=== PATIENT | female | born 1995 | race Two or more races ===

== ENCOUNTER → 2023-12-12 15:41 | Outpatient (REF) | payer OTHER, SELFPAY | LOC: RAD 15:41 | PROVIDERS: ATTENDING PHYSICIAN Obstetrics & Gynecology; FAMILY PHYSICIAN Family Medicine | DX: Z34.90 Encounter for supervision of normal pregnancy, unspecified, unspecified trimester (principal) | CPT/HCPCS: 76801 ==

== ENCOUNTER → 2023-12-27 13:43 | Outpatient (REF) | payer OTHER, SELFPAY | LOC: RAD 13:43 | PROVIDERS: ATTENDING PHYSICIAN Obstetrics & Gynecology; FAMILY PHYSICIAN Family Medicine | DX: Z34.90 Encounter for supervision of normal pregnancy, unspecified, unspecified trimester (principal) | CPT/HCPCS: 76801; 76817 ==

== ENCOUNTER → 2023-12-31 08:03 | Day surgery (SDC) | payer OTHER, SELFPAY ==
[2023-12-31] VITALS (17 sets, daily range): BP systolic 98–118; BP diastolic 57–74; BMI 21.3
--- NOTE | 2023-12-31 01:52 | ED.GENMED ---
History of Present Illness
General
Chief Complaint: Problems
Source: patient
Exam Limitations: none
Time Seen by Provider: 12/31/23 01:39
Nursing documentation reviewed up to this point in time: agreed with
Travel History
Have you had any contact with someone who has COVID-19?: No
Do you have any symptoms of coronavirus? Fever > 100 degrees, chills, cough, shortness of breath, sore throat, loss of taste or smell, muscle aches, or headache?: No
History of Present Illness
History of Present Illness:
Patient , approximately 13 weeks , who unfortunately had an ultrasound last week which revealed demise, presents to ED secondary to worsening lower abdominal cramping sensation, associated with nausea and passage of blood clots
along with bright red blood. Denies fever or chills. Denies chest pain or shortness of breath. Patient reports nausea sensation without vomiting. Denies dizziness. Patient is scheduled for D&C with her [facility] physician later this morning.
Review of Systems
Review of Systems
Allergies reviewed?: Yes
All Other Systems: ROS reviewed and negative except as documented in HPI and ROS
Constitutional: Reports no symptoms
EENT: Reports no symptoms
Respiratory: Reports no symptoms
Cardiac: Reports no symptoms
ABD/GI: Reports no symptoms
: Reports bleeding
Musculoskeletal: Reports no symptoms
Skin: Reports no symptoms
Neurological: Reports no symptoms
Phy Exam
Physical Exam
Physical Exam:
Physical Exam
General: no apparent distress, not acutely ill. afebrile
Head: nc/at. eomi
Neck: supple. no meningeal signs.
Heart: s1/s2 regular rate and rhythm, no murmur. equal radial pulses.
Lungs: no acute respiratory distress. clear bilaterally
Abdomen: normal bowel sounds. mild diffuse lower tenderness to palpation, without distention.
Neuro: alert and oriented. no focal neurological deficits
Skin: no rash
Psychiatric: well kept. interactive and cooperative
Extremities: no edema. no calf tenderness.
Course
Orders/Labs/Results
Orders:
Orders
12/31/23 01:51
IV Insert/Care/Rem.- Treatment PRN
0.9% Sodium Chloride 500 ml [Nss] 500 ml IV BOLUS
HYDROmorphone [Dilaudid] 0.5 mg IV NOW STA
Ondansetron Injectable [Zofran] 4 mg IV NOW STA
12/31/23 02:08
Type+Screen Urgent
Complete Blood Count/With Diff Urgent
Comprehensive Metabolic Panel Urgent
PTT Urgent
Prothrombin Time Urgent
12/31/23 04:03
Rhogam [* Blood Bank Products] Urgent
Blood Bank Products: Rhogam - Mini Dose
Quantity: 1
Transfuse Today: Yes
Reason: Other
Other reason: Rh Neg
Rho (D) Immune Globulin [MICRhoGRAM ULTRA FILTERED PLUS] 50 mcg IM ONCE ONE
12/31/23 04:04
* Blood Bank Products Urgent
Blood Bank Products: Rhogam - Mini Dose
Quantity: 50 mg
Transfuse Today: Yes
Reason: Other
Other reason: Vaginal bleeding/miscarriage
12/31/23 04:30
Doxycycline Hyclate [Vibramycin] 100 mg 0.9% Sodium Chloride 250 ml [Nss] 250 ml IV ONCE
Rho (D) Immune Globulin [MICRhoGRAM ULTRA FILTERED PLUS] 50 mcg IM ONCE ONE
12/31/23 04:54
Meperidine [Demerol] 12.5 mg IV PACU-Q5MPRN PRN
Morphine Sulfate 2 mg IV PACU-Q5MPRN PRN
Morphine Sulfate 4 mg IV PACU-Q5MPRN PRN
Ondansetron Injectable [Zofran] 4 mg IV PACU-ONCEPRN PRN
Prochlorperazine [Compazine] 5 mg IV PACU-ONCEPRN PRN
12/31/23 04:55
Notify MD As Directed
Notify physician if: for SDS patients with known or suspected sleep obstructive sleep apnea, monitor in the
PACU.
Notify MD for any apneic/desaturation episodes
O2 Therapy [RESP] Urgent
Titrate/Wean O2 to maintain O2 sat greater than (%): 92
Special Instructions: -Provide supplemental oxygen to achieve O2 sat of 92% or greater.
-After 15 min, may wean O2 and discontinue if patient is able to maintain O2 sat of 92%
or greater during recovery period.
If patient is a discharge home, without oxygen therapy, notify anestheiologist if
unable to maintain O2 SAT of 92% or greater on room air for MD clearance.
12/31/23 05:00
Flush (0.9% Sodium Chloride) [Flush (Nss)] See Dose Instructions IV PER PROTOCOL
Normosol (Mult Electrolytes) [Normosol-R] 1,000 ml IV PER PROTOCOL
12/31/23 05:07
OR Pathology Routine
Clinical History: incomplete
Pre-Operative Diagnosis: incomplete
Post-Operative Diagnosis: incomplete
Operative Procedure: dilation and evacuation
Surgeon: liane
Circulating Nurse: noam
Specimen Type: products of conception
12/31/23 05:09
Fentanyl Citrate/Pf [Sublimaze] 100 mcg .ROUTE .STK-MED ONE
Midazolam HCl [Versed] 2 mg .ROUTE .STK-MED ONE
12/31/23 05:24
Dexamethasone Sod Phosphate [Decadron] 20 mg .ROUTE .STK-MED ONE
Ondansetron Injectable [Zofran] 4 mg .ROUTE .STK-MED ONE
12/31/23 05:28
Lidocaine HCl/Pf [Xylocaine-Mpf 1% Vial] 50 mg .ROUTE .STK-MED ONE
Propofol [Diprivan] 20 ml .ROUTE .STK-MED
12/31/23 05:40
Ketorolac [Toradol] 30 mg .ROUTE .STK-MED ONE
12/31/23 07:00
Acetaminophen [Tylenol] 650 mg PO SDS-Q4HPRN PRN
Normosol (Mult Electrolytes) [Normosol-R] 1,000 ml IV SDS-ONCE
Ondansetron Injectable [Zofran] 4 mg IV SDS-ONCEPRN PRN
Oxycodone [Roxicodone] 10 mg PO SDS-Q4HPRN PRN
Oxycodone [Roxicodone] 5 mg PO SDS-Q4HPRN PRN
Abnormal Lab Results
12/31/23
02:08
Absolute Neuts (auto) 6.7 H 10^3/uL
(1.4-6.5)
Carbon Dioxide 20 L mmol/L
(22-30)
Glucose 100 H mg/dl
(70-99)
12/31/23 02:08
12/31/23 02:08
Vital Signs
Initial and Last Documented VS:
Initial Vital Signs
Temp Pulse Resp BP Pulse Ox
97.8 F 82 22 98/72 98
12/31/23 01:30 12/31/23 01:30 12/31/23 01:30 12/31/23 01:30 12/31/23 01:30
Last Documented Vital Signs
Temp Pulse Resp BP Pulse Ox
98.7 F 107 25 105/63 100
12/31/23 05:50 12/31/23 06:45 12/31/23 06:45 12/31/23 06:57 12/31/23 06:56
Information
Weeks gestation: N/A
Location: N/A
MDM/Problems Addressed
MDM/Problems Addressed:
H/H noted. Discussed with (charting clerk) - will proceed to OR
*Critical Care Note
Total Time (30-74mins, 75-104mins- exclusive of procedures): Not Applicable
ED Attending Note
-
Portions of this chart may have been created with voice recognition software.� Occasional wrong word or��sound alike� substitutions may have occurred due to the inherent limitations of voice recognition software.
Discharge Plan
Departure
Patient Disposition: Home (Routine Discharge)
Date of Disposition: 12/31/23
Time of Disposition: 05:53
Patient with high blood pressure during this ER visit?: No
Condition: Fair
Discharge Problem:
demise, Vaginal bleeding
Interventions
Interventions:
*Risk Screen - Suicide Last Done: 12/31/23 01:30
*General Assessment Last Done: 12/31/23 01:41
*Neglect/Abuse Screening Last Done: 12/31/23 01:30
ED- Fall Risk Assessment Last Done: 12/31/23 01:41
*ED COVID-19 Vaccine History Last Done: 12/31/23 01:40
*Nursing Disposition Last Done: 12/31/23 05:20
ED-Female Genitourinary Assessment Last Done: 12/31/23 01:41
Discharge Date and Time
Discharge Date/Time: 12/31/23 07:10
[2023-12-31] MEDS: DILAUDID 0.5 MG IV (02:15)
[2023-12-31] MEDS: NSS 500 IV (02:15)
[2023-12-31] MEDS: ZOFRAN 4 MG IV (02:16)
[2023-12-31 02:28] LABS: % Basophils 0.5 % (0-2); % Eosinophils 1.1 % (0-6); % Immature Granulocytes 0.3 % (0-0.5); % Lymphocytes 22.6 % (20.5-51.1); % Monocytes 5.8 % (1.7-9.3); % Neutrophils 69.7 % (42.2-75.2); Absolute Basophils 0.1 10^3/uL (0-0.2); Absolute Eosinophils 0.1 10^3/uL (0-0.7); Absolute Lymphocytes 2.2 10^3/uL (1.2-3.4); Absolute Monocytes 0.6 10^3/uL (0.1-0.6); Absolute Neutrophils 6.7 10^3/uL (1.4-6.5); Hematocrit 39.5 % (37.0-47.0); Hemoglobin 14.2 g/dL (12.0-16.0); Mean Corp Hgb Conc. 35.9 g/dL (33.0-37.0); Mean Corpuscular Hgb 30.1 pg (27.0-31.0); Mean Corpuscular Volume 83.9 fL (81.0-99.0); Mean Platelet Volume 9.8 fL (7.4-10.4); Nucleated Red Blood Cells % 0 %; Platelet Count 319 10^3/uL (130-400); Red Blood Cell Count 4.71 10^6/uL (4.20-5.40); Red Cell Dist. Width 12.7 % (11.5-14.5); White Blood Cell Count 9.6 10^3/uL (4.8-10.8)
[2023-12-31 02:32] LABS: INR 1.03; PT 13.3 Sec (11.4-14.6)
[2023-12-31 02:33] LABS: APTT 26.5 Sec (23.4-35.0)
[2023-12-31 02:37] LABS: ALT (SGPT) 13 U/L (0-35); AST (SGOT) 20 U/L (14-36); Albumin 4.7 g/dl (3.5-5.0); Alkaline Phosphatase 87 U/L (38-126); Blood Urea Nitrogen 11 mg/dl (7-17); Calcium 9.7 mg/dl (8.4-10.2); Carbon Dioxide 20 mmol/L (22-30); Chloride 105 mmol/L (98-107); Estimated Creatinine Clearance > 125 ml/min; Glucose 100 mg/dl (70-99); Potassium 3.6 mmol/L (3.5-5.1); Sodium 136 mmol/L (135-145); Total Bilirubin 1.2 mg/dl (0.2-1.3); Total Protein 7.4 g/dl (6.3-8.2); eGFR > 60.00
[2023-12-31] MEDS: VIBRAMYCIN 260 MG IV (04:38)
[2023-12-31] MEDS: [UNRECOGNIZED DRUG - OTHER] IM ×2 (04:54→04:55)
[2023-12-31] MEDS: RHO D IMMUNE GLOBULIN IM ×2 (04:54→04:55)
== END ==
LOC: EMR 05:13 → PACU 08:03
PROVIDERS: ATTENDING PHYSICIAN Obstetrics & Gynecology; EMERGENCY PHYSICIAN Emergency Medicine; FAMILY PHYSICIAN Family Medicine
DX: O03.4 Incomplete spontaneous abortion without complication (principal); Z3A.10 10 weeks gestation of pregnancy
CPT/HCPCS: 59812; 88305; 80053; 85025; 85610; 85730; 86850; 86900; 86901; 93005; 96361; 96365; 96372; 96375; 99284; 99285; J2790

== ENCOUNTER 2023-12-31 08:24 | Emergency (ER) | payer OTHER, SELFPAY ==
[2023-12-31 08:27] VITALS: BP 103/54
[2023-12-31 08:57] LABS: % Basophils 0.2 % (0-2); % Immature Granulocytes 0.3 % (0-0.5); % Lymphocytes 7.2 % (20.5-51.1); % Monocytes 1.3 % (1.7-9.3); Absolute Lymphocytes 0.7 10^3/uL (1.2-3.4); Absolute Monocytes 0.1 10^3/uL (0.1-0.6); Absolute Neutrophils 8.2 10^3/uL (1.4-6.5); Hematocrit 34.9 % (37.0-47.0); Hemoglobin 12.2 g/dL (12.0-16.0); Mean Corpuscular Hgb 30.4 pg (27.0-31.0); Mean Platelet Volume 9.9 fL (7.4-10.4); Nucleated Red Blood Cells % 0 %; Platelet Count 277 10^3/uL (130-400); Red Blood Cell Count 4.01 10^6/uL (4.20-5.40)
[2023-12-31 09:09] VITALS: BP 94/60
[2023-12-31 09:09] LABS: ALT (SGPT) 12 U/L (0-35); AST (SGOT) 19 U/L (14-36); Alkaline Phosphatase 78 U/L (38-126); Blood Urea Nitrogen 9 mg/dl (7-17); Calcium 8.8 mg/dl (8.4-10.2); Carbon Dioxide 20 mmol/L (22-30); Chloride 108 mmol/L (98-107); Glucose 138 mg/dl (70-99); Potassium 4.1 mmol/L (3.5-5.1); Sodium 133 mmol/L (135-145); Total Bilirubin 1.3 mg/dl (0.2-1.3); Total Protein 6.4 g/dl (6.3-8.2); eGFR > 60.00
--- NOTE | 2023-12-31 09:15 | ED.GENMED ---
History of Present Illness
<Louise Caldwell PA-C - Last Filed: 12/31/23 10:52>
General
Chief Complaint: Fainting/Passed Out
Source: patient and spouse
Exam Limitations: none
Time Seen by Provider: 12/31/23 08:53
Nursing documentation reviewed up to this point in time: agreed with
Travel History
Have you had any contact with someone who has COVID-19?: No
Do you have any symptoms of coronavirus? Fever > 100 degrees, chills, cough, shortness of breath, sore throat, loss of taste or smell, muscle aches, or headache?: No
History of Present Illness
History of Present Illness:
Patient is a 28 y.o female presenting via ems following syncopal episode earlier this morning. Patient was seen in the emergency department early this morning for miscarriage and while in emergency department started bleeding heavily. She was taken
to OR for D&E with Dr. Solorio. Procedure was performed without complications and patient was discharged home. Patient states that while in car on the way home she suddenly felt very lightheaded/dizzy and lost consciousness. Her states that
she was unresponsive for a few minutes. They called EMS. Per patient blood sugar in ambulance was 208.
She currently endorses fatigue and feeling shaky. Denies any nausea, vomiting, chest pain, shortness of breath.
She has no chronic health conditions. Takes no medications
Phy Exam
<Louise Caldwell PA-C - Last Filed: 12/31/23 10:52>
Physical Exam
Physical Exam:
General: Pale appearing and non-toxic
Vitals: Soft blood pressures, otherwise VSS
HEENT: Atraumatic, normocephalic; pupils equal round and reactive to light bilaterally, extraocular muscles intact; protecting airway
Neck: appears supple, no JVD
CV: RRR, heart sounds normal, no evidence of cyanosis
Resp: No evidence of respiratory distress, lungs clear; no accessory muscle use
Abd: Soft, nontender, non-distended
Extremities: No deformities, no evidence of cyanosis or edema
Neuro: alert and oriented to person, place, time; speech normal, no focal neurologic or motor deficits
Psych: Normal affect
Skin: Intact, no rashes
Course
<Louise Caldwell PA-C - Last Filed: 12/31/23 10:52>
Orders/Labs/Results
Orders:
Orders
12/31/23 08:30
Electrocardiogram (*1) Urgent
Reason for Study: Syncope
EKG- Treatment ONCE
12/31/23 08:35
Complete Blood Count/With Diff Urgent
Comprehensive Metabolic Panel Urgent
Abnormal Lab Results
12/31/23
08:35
RBC 4.01 L 10^6/uL
(4.20-5.40)
Hct 34.9 L %
(37.0-47.0)
Absolute Neuts (auto) 8.2 H 10^3/uL
(1.4-6.5)
Absolute Lymphs (auto) 0.7 L 10^3/uL
(1.2-3.4)
Neutrophils % 91.0 H %
(42.2-75.2)
Lymphocytes % 7.2 L %
(20.5-51.1)
Monocytes % 1.3 L %
(1.7-9.3)
Sodium 133 L mmol/L
(135-145)
Chloride 108 H mmol/L
(98-107)
Carbon Dioxide 20 L mmol/L
(22-30)
Creatinine 0.5 L mg/dL
(0.6-1.0)
Glucose 138 H mg/dl
(70-99)
12/31/23 08:35
12/31/23 08:35
Vital Signs
Initial and Last Documented VS:
Initial Vital Signs
Temp Pulse Resp BP Pulse Ox
98.6 F 82 16 103/54 100
12/31/23 08:27 12/31/23 08:27 12/31/23 08:27 12/31/23 08:27 12/31/23 08:27
Last Documented Vital Signs
Temp Pulse Resp BP Pulse Ox
98.6 F 89 15 105/91 100
12/31/23 08:27 12/31/23 09:43 12/31/23 09:43 12/31/23 09:45 12/31/23 09:43
<Jamie Manrique, - Last Filed: 12/31/23 10:32>
Orders/Labs/Results
Orders:
Orders
12/31/23 08:30
Electrocardiogram (*1) Urgent
Reason for Study: Syncope
EKG- Treatment ONCE
12/31/23 08:35
Complete Blood Count/With Diff Urgent
Comprehensive Metabolic Panel Urgent
Abnormal Lab Results
12/31/23
08:35
RBC 4.01 L 10^6/uL
(4.20-5.40)
Hct 34.9 L %
(37.0-47.0)
Absolute Neuts (auto) 8.2 H 10^3/uL
(1.4-6.5)
Absolute Lymphs (auto) 0.7 L 10^3/uL
(1.2-3.4)
Neutrophils % 91.0 H %
(42.2-75.2)
Lymphocytes % 7.2 L %
(20.5-51.1)
Monocytes % 1.3 L %
(1.7-9.3)
Sodium 133 L mmol/L
(135-145)
Chloride 108 H mmol/L
(98-107)
Carbon Dioxide 20 L mmol/L
(22-30)
Creatinine 0.5 L mg/dL
(0.6-1.0)
Glucose 138 H mg/dl
(70-99)
12/31/23 08:35
12/31/23 08:35
Vital Signs
Initial and Last Documented VS:
Initial Vital Signs
Temp Pulse Resp BP Pulse Ox
98.6 F 82 16 103/54 100
12/31/23 08:27 12/31/23 08:27 12/31/23 08:27 12/31/23 08:27 12/31/23 08:27
Last Documented Vital Signs
Temp Pulse Resp BP Pulse Ox
98.6 F 89 15 105/91 100
12/31/23 08:27 12/31/23 09:43 12/31/23 09:43 12/31/23 09:45 12/31/23 09:43
<Louise Caldwell PA-C - Last Filed: 12/31/23 10:52>
MDM/Problems Addressed
Differential Diagnosis Includes:
hypovolemia, dehydration, post-anesthesia complications, doubt PE
MDM/Problems Addressed:
Patient is 28 year old female presenting via ems following syncopal episode. Patient was in ED early this morning and taken to OR for D&E following miscarriage and blood loss. Patient was discharged and had syncopal episode on drive home. He reports
dizziness, diaphoresis preceding syncopal episode. No chest pain, shortness of breath. Patient denies any continued vaginal bleeding. Patient somewhat pale appearing, soft pressures in 90s/ 60s on arrival. Lungs clear, heart rate regular. Abdomen
soft and nontender. Discussed with OBGYN who performed D&E. Will check basic labs, orthostatics. Starting IVF. Suspect likely vasovagal from mild blood loss and anesthesia.
CBC without any clinically significant abnormalities. Hgb 12.2 from 14.4 last night - due to blood loss prior to and during procedure. CMP without any clinically significant abnormalities.
Orthostatics normal - suggesting syncope unlikely to be due to hypovolemia.
She has remained stable in emergency department. Blood pressure increased to 105/91. Stable for discharge with return precautions, OBGYN follow-up. Patient is comfortable with this plan. All questions answered.
Chronic conditions affecting care:
N/A
Acute Exacerbation and/or Progression of Chronic Illness:
Syncope
<Louise Caldwell PA-C - Last Filed: 12/31/23 10:52>
*Pulse Oximetry
Patient hypoxic: no
*EKG
EKG Intrepretation Date: 12/31/23
Interpretation: normal
Comparison EKG: no comparison EKG present
Heart Rate: 78
Rate: normal
Rhythm: sinus
Eola: normal axis
Interval: normal interval
QRS Pattern: normal QRS
Ischemia: no ischemia
*Flamer After Lasting Interpretation
Rate: normal
Interpretation: normal
Heart Rate: 84
Rhythm: sinus
<Jamie Manrique DO - Last Filed: 12/31/23 10:32>
*Critical Care Note
Total Time (30-74mins, 75-104mins- exclusive of procedures): Not Applicable
Data Reviewed
Review of Other/Old Records Reveals: Progress Notes (Gynecologic notes reviewed)
Source: patient and family
Further Testing Considered But Not Given:
Consider CT of the chest but no clinical concern for pulmonary embolism
ED Attending Note
<Louise Caldwell PA-C - Last Filed: 12/31/23 10:52>
-
Portions of this chart may have been created with voice recognition software.� Occasional wrong word or��sound alike� substitutions may have occurred due to the inherent limitations of voice recognition software.
<Jamie Manrique DO - Last Filed: 12/31/23 10:32>
ED Attending Note
Patient seen and examined by attending physician: Yes
I performed the substantive portion of visit, reviewed & personally made and approve the management plan that is documented in note by myself or GARIMA.: Yes
ED Attending Note:
28-year-old female who presents after syncopal episode. Patient was here through the night that had a D&C due to a missed AB. Patient my evaluation just feels tired but feels much better. Patient was on her way home and began to feel lightheaded.
She passed out was diaphoretic. Exam: Awake and alert, no focal deficits, no respiratory distress, blood pressure normal. Orthostatics normal. Assessment and plan: Suspect vasovagal event after being up all night with some blood loss and
anesthesia. She does not tilt at this time. Okay for discharge.
Discharge Plan
Departure
Patient Disposition: Home (Routine Discharge)
Date of Disposition: 12/31/23
Time of Disposition: 10:28
Patient with high blood pressure during this ER visit?: No
Condition: Good
Covid-19: Not Applicable
Discharge Problem:
Syncope
Instructions: Syncope (Fainting) (DC)
Prescriptions:
No Action
prenat.vits,ingris,[id number] Tablet
1 tab PO DAILY
acetaminophen 325 mg Tablet
650 mg PO Q4HPRN PRN (Reason: mild pain) Qty: 0 0RF
ibuprofen 600 mg Tablet
600 mg PO Q4HPRN PRN (Reason: moderate pain/cramps) Qty: 0 0RF
Probiotic
1 tab PO DAILY
Referrals:
Henry Whitfield DO [Family Provider] -
Activity Restrictions/Additional Instructions:
-Return to emergency department with any chest pain, shortness of breath, high fevers, recurrent fainting episodes, persistent dizziness/lightheadedness, significant blood loss, severe pain, worsening in current symptoms, or any other concerns
-Follow-up with OBGYN as instructed
-Stay well hydrated.
Interventions
Interventions:
*Risk Screen - Suicide Last Done: 12/31/23 08:31
*General Assessment Last Done: 12/31/23 08:30
*Neglect/Abuse Screening Last Done: 12/31/23 08:31
ED- Fall Risk Assessment Last Done: 12/31/23 10:42
*ED COVID-19 Vaccine History Last Done: 12/31/23 08:30
*Nursing Disposition Last Done: 12/31/23 10:42
ED- Cardiac Assessment Last Done: 12/31/23 08:31
ED- Neurological Assessment Last Done: 12/31/23 08:31
Discharge Date and Time
Discharge Date/Time: 12/31/23 10:48
[2023-12-31 09:45] VITALS: BP 105/91
[2023-12-31 09:49] VITALS: BP 105/91; BP 92/63; BP 97/70; PULSE 100; PULSE 88; PULSE 98
== END 2023-12-31 10:48 | disposition home or self-care (01) ==
LOC: EMR 08:24
PROVIDERS: EMERGENCY PHYSICIAN Emergency Medicine; FAMILY PHYSICIAN Family Medicine
DX: R55 Syncope and collapse (principal)
CPT/HCPCS: 99284; 80053; 85025; 93005

== ENCOUNTER → 2024-05-09 09:08 | Outpatient (REF) | payer OTHER, SELFPAY | LOC: RAD 09:08 | PROVIDERS: ATTENDING PHYSICIAN Advanced Practice Midwife; FAMILY PHYSICIAN Family Medicine | DX: R10.2 Pelvic and perineal pain (principal); N93.9 Abnormal uterine and vaginal bleeding, unspecified | CPT/HCPCS: 76801; 76817 ==

== ENCOUNTER → 2024-05-21 16:03 | Outpatient (REF) | payer OTHER, SELFPAY | LOC: PNTC 16:03 | PROVIDERS: ATTENDING PHYSICIAN Nurse Practitioner Family | DX: Z34.91 Encounter for supervision of normal pregnancy, unspecified, first trimester (principal) | CPT/HCPCS: 76801 ==

== ENCOUNTER → 2024-06-30 06:51 | Outpatient (REF) | payer OTHER, SELFPAY | LOC: PNTC 06:51 | PROVIDERS: ATTENDING PHYSICIAN Obstetrics & Gynecology | DX: Z36.0 Encounter for antenatal screening for chromosomal anomalies (principal); Z36.82 Encounter for antenatal screening for nuchal translucency; Z34.91 Encounter for supervision of normal pregnancy, unspecified, first trimester | CPT/HCPCS: 76801; 76813 ==

== ENCOUNTER → 2024-08-12 06:54 | Outpatient (REF) | payer OTHER, SELFPAY | LOC: PNTC 06:54 | PROVIDERS: ATTENDING PHYSICIAN Obstetrics & Gynecology | DX: O35.14 Maternal care for (suspected) chromosomal abnormality in fetus, Turner Syndrome (principal) | CPT/HCPCS: 76811 ==

== ENCOUNTER → 2024-09-10 07:00 | Outpatient (REF) | payer OTHER, SELFPAY | LOC: PNTC 07:00 | PROVIDERS: ATTENDING PHYSICIAN Obstetrics & Gynecology | DX: O44.20 Partial placenta previa NOS or without hemorrhage, unspecified trimester (principal) | CPT/HCPCS: 76816; 76817 ==

== ENCOUNTER → 2024-09-17 11:12 | Outpatient (REF) | payer OTHER, SELFPAY ==
--- NOTE | 2024-09-17 12:20 | PN.DIAED06 ---
Meal Plan - Gestational
- Breakfast
Gestational Diabetes Meal Plan Name: 1800 calories
Breakfast - Total Carbohydrate (grams): 30
Breakfast - Starch Carbohydrate: 1
Breakfast - Fruit Carbohydrate: 0
Breakfast - Milk Carbohydrate: 1
Breakfast - Nonstarchy Vegetables: Yes
Breakfast - Meat/Protein: 1
Breakfast - Fat: 2
- Morning Snack
Morning Snack - Total Carbohydrate (grams): 30
Morning Snack - Starch Carbohydrate: 1
Morning Snack - Fruit Carbohydrate: 0
Morning Snack - Milk Carbohydrate: 1
Morning Snack - Nonstarchy Vegetables: Yes
Morning Snack - Meat/Protein: 0.5
Morning Snack - Fat: 0
- Lunch
Lunch - Total Carbohydrate (grams): 45
Lunch - Starch Carbohydrate: 2
Lunch - Fruit Carbohydrate: 1
Lunch - Milk Carbohydrate: 0
Lunch - Nonstarchy Vegetables: Yes
Lunch - Meat/Protein: 2
Lunch - Fat: 1
- Afternoon Snack
Afternoon Snack - Total Carbohydrate (grams): 30
Afternoon Snack - Starch Carbohydrate: 1
Afternoon Snack - Fruit Carbohydrate: 1
Afternoon Snack - Milk Carbohydrate: 0
Afternoon Snack - Nonstarchy Vegetables: Yes
Afternoon Snack - Meat/Protein: 1
Afternoon Snack - Fat: 0
- Dinner
Dinner - Total Carbohydrate (grams): 45
Dinner - Starch Carbohydrate: 2
Dinner - Fruit Carbohydrate: 0
Dinner - Milk Carbohydrate: 1
Dinner - Nonstarchy Vegetables: Yes
Dinner - Meat/Protein: 2
Dinner - Fat: 2
- Evening Snack
Evening Snack - Total Carbohydrate (grams): 30
Evening Snack - Starch Carbohydrate: 1
Evening Snack - Fruit Carbohydrate: 0
Evening Snack - Milk Carbohydrate: 1
Evening Snack - Nonstarchy Vegetables: Yes
Evening Snack - Meat/Protein: 1
Evening Snack - Fat: 1
--- NOTE | 2024-09-17 14:45 | PN.DE ---
Diabetes Education
- -
09/17/2024: Gestational Diabetes Consult
Met with Ms. Logan today, , currently at 24 weeks of gestation, here today for medical nutrition therapy.
Explained glucose metabolism in body and what occurs during to cause increase blood sugar. Discussed importance of keeping BS well controlled to avoid complications to the baby during and after (macrosomia, hypoglycemia).
Explained to Joslyn that she is at increased risk of developing T2DM in the future. Joslyn reports that she has 2 glucose monitors at home. An over the counter CGM- Stelo by [employer] and a fingerstick glucose meter- [employer] which she has been using
to monitor her blood sugars, fasting and 1-2 hrs after each meal since dx of GDM. Reviewed proper testing technique, testing sites and testing pattern. She is aware to test FBS and 2 hr pp each meal. Expected results for FBS <95 mg/dl and 2 hr pp
<120 mg/dl. Noted for fasting blood sugar of 75mg/dl this morning. Log sheet provided for her to record results, she will send a 4 day meal log with all her FBG and 2hr Post prandial glucose numbers to this office for review. In addition, she will
send all her glucose readings to Betty at [facility] every Sunday.
Discussed macronutrients, provided with 1800 ingris GDM meal plan, she has a good understanding of healthy nutrition and has been eating healthy most of her life and more so since finding out that she has GDM with this as well.
Discussed physical activity, however, she is currently not able to participate in any exercise due to related complications but will found out at her next f/u appt if she is cleared to start exercising. She was encouraged to reach out
should she require insulin.
== END ==
LOC: DES 11:12
PROVIDERS: ATTENDING PHYSICIAN Obstetrics & Gynecology
DX: O24.419 Gestational diabetes mellitus in pregnancy, unspecified control (principal)
CPT/HCPCS: 99078

== ENCOUNTER → 2024-10-08 06:58 | Outpatient (REF) | payer OTHER, SELFPAY | LOC: PNTC 06:58 | PROVIDERS: ATTENDING PHYSICIAN Student in an Organized Health Care Education/Training Program | DX: O44.40 Low lying placenta NOS or without hemorrhage, unspecified trimester (principal); Z34.82 Encounter for supervision of other normal pregnancy, second trimester | CPT/HCPCS: 36415; 76816; 76817; 86850; 86900; 86901; J2790 ==

== ENCOUNTER 2024-11-08 11:00 | Observation (INO) | payer OTHER, SELFPAY ==
[2024-11-08] MEDS: LR 1000 IV ×2 (11:00→12:29)
[2024-11-08 11:36] VITALS: BP 121/75; BMI 26.4
[2024-11-08 11:37] LABS: % Basophils 0.4 % (0-2); % Eosinophils 1.1 % (0-6); % Immature Granulocytes 1.5 % (0-0.5); % Lymphocytes 18.4 % (20.5-51.1); % Monocytes 8.7 % (1.7-9.3); % Neutrophils 69.9 % (42.2-75.2); Absolute Eosinophils 0.1 10^3/uL (0-0.7); Absolute Immature Granulocytes 0.1 10^3/uL (0-0.05); Absolute Lymphocytes 1.4 10^3/uL (1.2-3.4); Absolute Monocytes 0.7 10^3/uL (0.1-0.6); Absolute Neutrophils 5.2 10^3/uL (1.4-6.5); Hematocrit 35.5 % (37.0-47.0); Hemoglobin 12.1 g/dL (12.0-16.0); Mean Corp Hgb Conc. 34.1 g/dL (33.0-37.0); Mean Corpuscular Hgb 30.6 pg (27.0-31.0); Mean Corpuscular Volume 89.6 fL (81.0-99.0); Mean Platelet Volume 10.5 fL (7.4-10.4); Nucleated Red Blood Cells % 0 %; Platelet Count 259 10^3/uL (130-400); Red Blood Cell Count 3.96 10^6/uL (4.20-5.40); Red Cell Dist. Width 13.1 % (11.5-14.5); White Blood Cell Count 7.5 10^3/uL (4.8-10.8)
[2024-11-08 11:48] LABS: ALT (SGPT) 15 U/L (0-35); AST (SGOT) 22 U/L (14-36); Albumin 3.5 g/dl (3.5-5.0); Alkaline Phosphatase 123 U/L (38-126); Blood Urea Nitrogen 10 mg/dl (7-17); Calcium 8.9 mg/dl (8.4-10.2); Carbon Dioxide 19 mmol/L (22-30); Chloride 105 mmol/L (98-107); Estimated Creatinine Clearance > 125 ml/min; Glucose 97 mg/dl (70-99); Potassium 3.8 mmol/L (3.5-5.1); Sodium 132 mmol/L (135-145); Total Bilirubin 0.5 mg/dl (0.2-1.3); Total Protein 6.3 g/dl (6.3-8.2); eGFR > 60.00
[2024-11-08 12:17] LABS: Urine Albumin Trace (Neg - Trace); Urine Bilirubin Negative (Negative); Urine Character Clear (Clear); Urine Color Yellow; Urine Glucose Negative (Negative); Urine Ketone Negative (Negative); Urine Leukocyte Negative (Negative); Urine Nitrite Negative (Negative); Urine Occult Blood Negative (Negative); Urine Urobilinogen Negative (Neg - 1+)
== END 2024-11-08 12:59 | disposition home or self-care (01) ==
LOC: LDRP 11:00
PROVIDERS: ADMITTING PHYSICIAN Obstetrics & Gynecology
DX: O98.513 Other viral diseases complicating pregnancy, third trimester (principal); A09 Infectious gastroenteritis and colitis, unspecified; Z3A.32 32 weeks gestation of pregnancy
CPT/HCPCS: 80053; 81003; 85025; 86850; 86870; 86900; 86901; G0378

== ENCOUNTER → 2024-11-11 07:01 | Outpatient (REF) | payer OTHER, SELFPAY | LOC: PNTC 07:01 | PROVIDERS: ATTENDING PHYSICIAN Student in an Organized Health Care Education/Training Program | DX: O09.529 Supervision of elderly multigravida, unspecified trimester (principal) | CPT/HCPCS: 76816 ==

== ENCOUNTER 2024-12-07 15:09 | Observation (INO) | payer OTHER, SELFPAY ==
[2024-12-07 15:14] VITALS: BP 122/78; BMI 27.3
== END 2024-12-07 15:54 | disposition home or self-care (01) ==
LOC: LDRP 15:09
PROVIDERS: ADMITTING PHYSICIAN Obstetrics & Gynecology; FAMILY PHYSICIAN Family Medicine
DX: O36.8130 Decreased fetal movements, third trimester, not applicable or unspecified (principal); Z3A.37 37 weeks gestation of pregnancy; O24.410 Gestational diabetes mellitus in pregnancy, diet controlled
CPT/HCPCS: 59025; G0378

== ENCOUNTER → 2024-12-10 06:57 | Outpatient (REF) | payer OTHER, SELFPAY | LOC: PNTC 06:57 | PROVIDERS: ATTENDING PHYSICIAN Student in an Organized Health Care Education/Training Program | DX: O24.419 Gestational diabetes mellitus in pregnancy, unspecified control (principal) | CPT/HCPCS: 76816 ==

== ENCOUNTER 2024-12-26 08:02 | Inpatient (IN) | payer OTHER, SELFPAY ==
[2024-12-26 08:16] VITALS: BMI 27.4
[2024-12-26 08:19] VITALS: BP 117/79
[2024-12-26] MEDS: LR 1000 IV ×3 (08:45→10:12)
[2024-12-26 08:53] LABS: Glucose - Point of Care 93 mg/dl (70-99)
[2024-12-26 08:55] LABS: % Basophils 0.4 % (0-2); % Eosinophils 0.8 % (0-6); % Immature Granulocytes 0.7 % (0-0.5); % Lymphocytes 16.1 % (20.5-51.1); % Monocytes 11.1 % (1.7-9.3); % Neutrophils 70.9 % (42.2-75.2); Absolute Eosinophils 0.1 10^3/uL (0-0.7); Absolute Immature Granulocytes 0.1 10^3/uL (0-0.05); Absolute Lymphocytes 1.2 10^3/uL (1.2-3.4); Absolute Monocytes 0.9 10^3/uL (0.1-0.6); Absolute Neutrophils 5.5 10^3/uL (1.4-6.5); Hematocrit 35.9 % (37.0-47.0); Hemoglobin 12.5 g/dL (12.0-16.0); Mean Corp Hgb Conc. 34.8 g/dL (33.0-37.0); Mean Corpuscular Hgb 30.1 pg (27.0-31.0); Mean Corpuscular Volume 86.5 fL (81.0-99.0); Mean Platelet Volume 11.4 fL (7.4-10.4); Nucleated Red Blood Cells % 0 %; Platelet Count 235 10^3/uL (130-400); Red Blood Cell Count 4.15 10^6/uL (4.20-5.40); Red Cell Dist. Width 13.4 % (11.5-14.5); White Blood Cell Count 7.7 10^3/uL (4.8-10.8)
[2024-12-26] MEDS: PITOCIN 30 UNITS/NSS 500 ML IV (09:33)
[2024-12-26] MEDS: FENTANYL/BUPIVACAINE 100 EPIDURAL (13:47)
[2024-12-26] MEDS: SUBLIMAZE 100 MCG EPIDURAL (13:47)
[2024-12-26 14:09] LABS: Glucose - Point of Care 84 mg/dl (70-99)
[2024-12-26 16:13] LABS: Glucose - Point of Care 92 mg/dl (70-99)
[2024-12-26] MEDS: TYLENOL 650 MG PO ×2 (16:31→21:58)
[2024-12-26] MEDS: MOTRIN 600 MG PO ×2 (16:31→21:59)
[2024-12-26] MEDS: SENOKOT-S 1 TABLET PO (21:59)
[2024-12-27 01:57] LABS: Glucose - Point of Care 130 mg/dl (70-99)
[2024-12-27] MEDS: MOTRIN 600 MG PO ×4 (04:13→23:04)
[2024-12-27] MEDS: TYLENOL 650 MG PO ×4 (04:13→23:04)
[2024-12-27 05:51] LABS: Hematocrit 31.3 % (37.0-47.0); Hemoglobin 10.8 g/dL (12.0-16.0)
[2024-12-27] MEDS: PRENATAL PLUS PO (08:51)
[2024-12-27] MEDS: ZOLOFT PO (08:51)
[2024-12-27] MEDS: ZYRTEC PO (08:51)
[2024-12-27] MEDS: MAALOX 30 ML PO (16:29)
[2024-12-28] MEDS: MOTRIN 600 MG PO (05:07)
[2024-12-28] MEDS: TYLENOL 650 MG PO (05:07)
[2024-12-28] MEDS: ZYRTEC 10 MG PO (08:24)
[2024-12-28] MEDS: ZOLOFT 50 MG PO (08:24)
[2024-12-28] MEDS: PRENATAL PLUS 1 TABLET PO (08:24)
[2024-12-30 12:21] LABS: Syphilis/T. pallidum Ab Reflex Negative (Negative)
== END 2024-12-28 11:23 | disposition home or self-care (01) | DRG 807 ==
LOC: LDRP 08:02
PROVIDERS: ADMITTING PHYSICIAN Obstetrics & Gynecology
PROC: 3E033VJ Introduction of Other Hormone into Peripheral Vein, Percutaneous Approach (ICD-10-PCS; 2024-12-26)
PROC: 10E0XZZ Delivery of Products of Conception, External Approach (ICD-10-PCS; 2024-12-26)
PROC: 10907ZC Drainage of Amniotic Fluid, Therapeutic from Products of Conception, Via Natural or Artificial Opening (ICD-10-PCS; 2024-12-26)
PROC: 0KQM0ZZ Repair Perineum Muscle, Open Approach (ICD-10-PCS; 2024-12-26)
DX: O24.420 Gestational diabetes mellitus in childbirth, diet controlled (principal); Z37.0 Single live birth; O70.1 Second degree perineal laceration during delivery; Z3A.39 39 weeks gestation of pregnancy
CPT/HCPCS: 88307; 36415; 82962; 85014; 85018; 85025; 86780; 86850; 86900; 86901